=== PATIENT | female | born 1990 | race Caucasian/White ===

== ENCOUNTER 2017-06-05 14:07 | Emergency (ER) | payer BC, OTHER ==
[~2017-06-05] VITALS: Ht 154.9 cm; Wt 64.0 kg
[~2017-06-05 14:07] MED LIST: CLOT1%T TOPICAL
[2017-06-05 14:10] VITALS: BP 140/74; PULSE 127; RESP 16; TEMP 97.6; O2SAT 95
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
[2017-06-05 14:54] LABS: AUTOMATED NEUTROPHIL # 5.1 TH/MM3 (1.8-7.7); BASOPHIL % 0.2 % (0.0-2.0); EOSINOPHIL % 0.5 % (0.0-4.0); HEMATOCRIT 45.8 % (35.0-46.0); LYMPH % 24.3 % (9.0-44.0); LYMPHOCYTE # 1.9 TH/MM3 (1.0-4.8); MEAN CORPUSCULAR HEMOGLOBIN 32.9 PG (27.0-34.0); MEAN CORPUSCULAR HGB CONC 33.2 % (32.0-36.0); MONO % 8.8 % (0.0-8.0); NEUT % 66.2 % (16.0-70.0); PLATELET COUNT 79 TH/MM3 (150-450); RED BLOOD COUNT 4.62 MIL/MM3 (4.00-5.30); RED CELL DISTRIBUTION WIDTH 15.6 % (11.6-17.2); WHITE BLOOD COUNT 7.8 TH/MM3 (4.0-11.0)
[2017-06-05 15:00] LABS: HEMO FLAGS AUTO DIFF
[2017-06-05 15:26] LABS: ALKALINE PHOSPHATASE 66 U/L (45-117); ALT (GPT) 203 U/L (10-53); ANION GAP 9 MEQ/L (5-15); AST (GOT) 160 U/L (15-37); BICARBONATE 25.2 MEQ/L (21.0-32.0); BLOOD UREA NITROGEN 7 MG/DL (7-18); CHLORIDE 105 MEQ/L (98-107); GLOMERULAR FILTRATION RATE 87 ML/MIN (>89); SODIUM (NA) 139 MEQ/L (136-145); TOTAL BILIRUBIN ADULT 0.5 MG/DL (0.2-1.0)
[2017-06-05 15:27] LABS: ALCOHOL 341 MG/DL (0-5)
[2017-06-05 15:37] LABS: PLATELET MORPHOLOGY ENLARGED (NORMAL); SCAN/DIFF AUTO DIFF CONFIRMED
--- NOTE | 2017-06-05 18:53 | PD ---
Data Data Last Documented VS Vital Signs Date Time Temp Pulse Resp B/P (MAP) Pulse Ox O2 Delivery O2 Flow Rate FiO2 06/05/17 14:10 97.6 127 16 140/74 (96) 95 Orders Orders Complete Blood Count With Diff (06/05/17 14:18) Comprehensive Metabolic Panel (06/05/17 14:18) Ed Urine Pregnancytest Poc (06/05/17 14:18) Psych Screen (06/05/17 14:18) Drug Screen, Random Urine (06/05/17 14:18) Alcohol (Ethanol) (06/05/17 14:18) Alcohol Withdrawal Asmt-Ciwa ONCE (06/05/17 18:50) Flumazenil Inj (Romazicon Inj) (06/05/17 19:00) Lorazepam (Ativan) (06/05/17 19:00) Lorazepam (Ativan) (06/05/17 19:00) Lorazepam (Ativan) (06/05/17 19:00) Labs Laboratory Tests Test 06/05/17 14:33 White Blood Count 7.8 TH/MM3 Red Blood Count 4.62 MIL/MM3 Hemoglobin 15.2 GM/DL Hematocrit 45.8 % Mean Corpuscular Volume 99.0 FL Mean Corpuscular Hemoglobin 32.9 PG Mean Corpuscular Hemoglobin Concent 33.2 % Red Cell Distribution Width 15.6 % Platelet Count 79 TH/MM3 Mean Platelet Volume 9.5 FL Neutrophils (%) (Auto) 66.2 % Lymphocytes (%) (Auto) 24.3 % Monocytes (%) (Auto) 8.8 % Eosinophils (%) (Auto) 0.5 % Basophils (%) (Auto) 0.2 % Neutrophils # (Auto) 5.1 TH/MM3 Lymphocytes # (Auto) 1.9 TH/MM3 Monocytes # (Auto) 0.7 TH/MM3 Eosinophils # (Auto) 0.0 TH/MM3 Basophils # (Auto) 0.0 TH/MM3 CBC Comment AUTO DIFF Differential Comment AUTO DIFF CONFIRMED Platelet Morphology Comment ENLARGED Blood Urea Nitrogen 7 MG/DL Creatinine 0.78 MG/DL Random Glucose 107 MG/DL Total Protein 8.6 GM/DL Albumin 4.4 GM/DL Calcium Level 9.2 MG/DL Alkaline Phosphatase 66 U/L Aspartate Amino Transf (AST/SGOT) 160 U/L Alanine Aminotransferase (ALT/SGPT) 203 U/L Total Bilirubin 0.5 MG/DL Sodium Level 139 MEQ/L Potassium Level 4.0 MEQ/L Chloride Level 105 MEQ/L Carbon Dioxide Level 25.2 MEQ/L Anion Gap 9 MEQ/L Estimat Glomerular Filtration Rate 87 ML/MIN Urine Opiates Screen NEG Urine Barbiturates Screen NEG Urine Amphetamines Screen NEG Urine Benzodiazepines Screen NEG Urine Cocaine Screen NEG Urine Cannabinoids Screen POS Ethyl Alcohol Level 341 MG/DL MDM Supervised Visit with DORY: No Narrative Course The patient was seen by the previous provider and medically cleared for psychiatric evaluation by him. See his note for further details. Briefly this is a 27-year-old female who is here under Ching act for suicidal ideation. The patient also consumes alcohol daily and today her alcohol level is 340. She was medically cleared about 3 hours before being brought back to my medical pod. Upon arrival the nurse became concerned because the patient is tremulous with reported history of alcohol withdrawal seizures, stating that she believes she might have a seizure. I was called to the bedside at this time. The patient is awake and alert. She tells me that she feels nauseous and tremulous and that she can't eat because she believes she may be withdrawing because she has not had an alcoholic beverage in several hours. She 'll be given a dose of Ativan and started on a CIWA protocol. Diagnosis Primary Impression: Alcohol-induced mood disorder Scripts No Active Prescriptions or Reported Meds Condition: Donny Beard MD Jun 05, 2017 18:53
[2017-06-05] MEDS: LORazepam 1 MG TAB PO ONE (19:00)
[2017-06-05] MEDS ORDERED: LORazepam 2 MG TAB PO PRN (19:00)
[2017-06-05] MEDS ORDERED: FLUMAZENIL 0.5 MG/5 ML VIAL IV PUSH PRN (19:00)
[2017-06-05 19:57] VITALS: BP 121/88; PULSE 101; RESP 16; O2SAT 98
[2017-06-05] MEDS ORDERED: ONDANSETRON HCL 4 MG/2 ML VIAL IV PUSH ONE (20:15)
[2017-06-05 20:51] VITALS: BP 130/73; PULSE 101; RESP 18; O2SAT 97
[2017-06-05 22:00] VITALS: BP 102/54; PULSE 95; RESP 17; TEMP 97.9; O2SAT 95
[2017-06-06] MEDS: LORazepam 1 MG TAB PO PRN ×2 (02:00→05:11)
[2017-06-06 02:07] VITALS: BP 108/71; PULSE 94; RESP 17; TEMP 97.9; O2SAT 97
[2017-06-06 06:12] VITALS: BP 110/56; PULSE 82; RESP 18
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
[2017-06-06 09:38] VITALS: BP 124/59; PULSE 80; RESP 18; O2SAT 100
--- NOTE | 2017-06-06 10:04 | PD ---
Physical Exam Time Seen by Provider: 10:[address] Torres has evaluated the patient, lifted the Ching act, and the patient will be discharged to her dad who will be taking her to detox. Data Data Last Documented VS Vital Signs Date Time Temp Pulse Resp B/P (MAP) Pulse Ox O2 Delivery O2 Flow Rate FiO2 06/06/17 09:38 80 18 124/59 (80) 100 Room Air 06/06/17 02:07 97.9 Orders Orders Complete Blood Count With Diff (06/05/17 14:18) Comprehensive Metabolic Panel (06/05/17 14:18) Ed Urine Pregnancytest Poc (06/05/17 14:18) Psych Screen (06/05/17 14:18) Drug Screen, Random Urine (06/05/17 14:18) Alcohol (Ethanol) (06/05/17 14:18) Alcohol Withdrawal Asmt-Ciwa ONCE (06/05/17 18:50) Flumazenil Inj (Romazicon Inj) (06/05/17 19:00) Lorazepam (Ativan) (06/05/17 19:00) Lorazepam (Ativan) (06/05/17 19:00) Lorazepam (Ativan) (06/05/17 19:00) Ondansetron Inj (Zofran Inj) (06/05/17 20:15) Diet Regular Basic (06/06/17 Breakfast) Labs Laboratory Tests Test 06/05/17 14:33 White Blood Count 7.8 TH/MM3 Red Blood Count 4.62 MIL/MM3 Hemoglobin 15.2 GM/DL Hematocrit 45.8 % Mean Corpuscular Volume 99.0 FL Mean Corpuscular Hemoglobin 32.9 PG Mean Corpuscular Hemoglobin Concent 33.2 % Red Cell Distribution Width 15.6 % Platelet Count 79 TH/MM3 Mean Platelet Volume 9.5 FL Neutrophils (%) (Auto) 66.2 % Lymphocytes (%) (Auto) 24.3 % Monocytes (%) (Auto) 8.8 % Eosinophils (%) (Auto) 0.5 % Basophils (%) (Auto) 0.2 % Neutrophils # (Auto) 5.1 TH/MM3 Lymphocytes # (Auto) 1.9 TH/MM3 Monocytes # (Auto) 0.7 TH/MM3 Eosinophils # (Auto) 0.0 TH/MM3 Basophils # (Auto) 0.0 TH/MM3 CBC Comment AUTO DIFF Differential Comment AUTO DIFF CONFIRMED Platelet Morphology Comment ENLARGED Blood Urea Nitrogen 7 MG/DL Creatinine 0.78 MG/DL Random Glucose 107 MG/DL Total Protein 8.6 GM/DL Albumin 4.4 GM/DL Calcium Level 9.2 MG/DL Alkaline Phosphatase 66 U/L Aspartate Amino Transf (AST/SGOT) 160 U/L Alanine Aminotransferase (ALT/SGPT) 203 U/L Total Bilirubin 0.5 MG/DL Sodium Level 139 MEQ/L Potassium Level 4.0 MEQ/L Chloride Level 105 MEQ/L Carbon Dioxide Level 25.2 MEQ/L Anion Gap 9 MEQ/L Estimat Glomerular Filtration Rate 87 ML/MIN Urine Opiates Screen NEG Urine Barbiturates Screen NEG Urine Amphetamines Screen NEG Urine Benzodiazepines Screen NEG Urine Cocaine Screen NEG Urine Cannabinoids Screen POS Ethyl Alcohol Level 341 MG/DL MDM Supervised Visit with DORY: No Narrative Course Dr. Torres has evaluated the patient, lifted the Ching act and the patient will be discharged home. The patient's father is picking her up and will be taking her to detox. He has a plan in place for detox. Patient contracts safety. Denies suicidal or homicidal ideations. Patient will be provided community resource packet to [facility] for follow-up. Has friends and family for support. Patient is medically cleared for discharge. Diagnosis Primary Impression: Alcohol abuse Referrals: [facility] (Out patient) Primary Care Physician Psychiatrist [facility] Patient Instructions: Abuse of Alcohol (ED), Alcohol Dependence (ED), Alcohol Intoxication (ED), General Instructions, Mood Disorders (ED) Additional Instruction: Contract safety to your self and others Stop drinking alcohol Follow-up with psychiatry Follow-up with primary care provider Follow-up with Scar Castorena Return to the emergency department immediately with worsening of symptoms Med/Other Pt SpecificInfo: Prescription(s) given, No Meds Exist/No RX given Scripts No Active Prescriptions or Reported Meds Disposition: 01 DISCHARGE HOME Condition: Stable Sylvia Perez Jun 06, 2017 10:04
== END 2017-06-06 11:26 | disposition home or self-care (01) ==
LOC: NEPD 14:07 → NEPJ 06-06 11:26
DX: F10.10 Alcohol abuse, uncomplicated (principal); F41.9 Anxiety disorder, unspecified; F31.9 Bipolar disorder, unspecified; Z72.0 Tobacco use
CPT/HCPCS: 80053; 80307; 84703; 85025; 96374; 99284; J2405